=== PATIENT | female | born 1955 | race Caucasian/White ===

== ENCOUNTER → 2019-04-18 | Outpatient (REF) | payer OTHER ==
[~2019-04-18] MED LIST: ACET65TA; ADVA1AER2; ALBUTEROL; BENI20TA11; BONIVA; COUM1TAB18; FLOVENT; FOLI1TAB; HYDR25TA6; NEXI20CA; OXYC10TA97; PERC5TAB8; PULMOCORT; SERO1TAB3; SKELAXIN; SUCR1TAB56; THYR15TA; VITAMIN A&D; ZANTAC
[2019-04-18 18:52] LABS: FERRITIN 99 NG/ML (8-252); IRON (FE) 96 UG/DL (50-170); PERCENT SATURATION 31.8 % (13.2-45.0); TOTAL IRON BINDING CAPACITY 302 UG/DL (250-450); TOTAL PROTEIN 6.2 GM/DL (6.4-8.2)
[2019-04-18 18:57] LABS: FOLATE > 24.0 NG/ML; VITAMIN B12 LEVEL 285 PG/ML
[2019-04-18 19:01] LABS: URINE TOTAL PROTEIN 7.4 MG/DL (0-12)
[2019-04-20 07:29] LABS: UPEP INTERPRETATION NO M-SPIKE NOTED; URINE VOLUME RANDOM ML
[2019-04-24 10:54] LABS: ALBUMIN 3.95 GM/DL (3.29-5.55); ALBUMIN % 63.7 % (55.8-66.1); ALPHA-1-GLOBULINS 0.25 GM/DL (0.17-0.41); ALPHA-2-GLOBULINS 0.61 GM/DL (0.42-0.99)
[2019-04-24 10:55] LABS: ALPHA-2-GLOBULINS % 9.9 % (7.1-11.8); BETA-1-GLOBULINS % 6.4 % (4.7-7.2); BETA-2-GLOBULINS 0.31 GM/DL (0.19-0.55); GAMMA GLOBULINS 0.68 GM/DL (0.65-1.58)
== END ==
LOC: M LAB REF 16:59
PROVIDERS: ATTEND Internal Medicine Nephrology
DX: D64.9 Anemia, unspecified (principal)

== ENCOUNTER 2019-05-22 15:57 | Emergency (ER) | payer OTHER, BC ==
[~2019-05-22] VITALS: Ht 165.1 cm; Wt 75.0 kg
[2019-05-22 18:37] VITALS: BP 131/76
--- NOTE | 2019-05-22 18:39 | REP ---
REASON FOR EXAM: Pain after trauma. COMPARISON: EXAM: 08/23/2009 a postoperative exam. 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 There are no abnormal periprosthetic lucencies. Seen only on the lateral views there is a subtle cortical step-off possibly with a cortical breech. There is marked and significant anterior soft tissue swelling spanning the breadth of the knee. IMPRESSION:Possible tiny posterior distal femoral diaphyseal fracture. The finding is subtle. There is a significant amount of soft-tissue swelling, probably a prepatellar bursal effusion. Electronically Signed by Cecil Ma DO 05/22/2019 07:28 P
--- NOTE | 2019-05-23 15:53 | ED PDOC ---
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
== END 2019-05-22 18:54 | disposition home or self-care (01) ==
LOC: M ED 15:57
DX: S80.02XA Contusion of left knee, initial encounter (principal); R22.42 Localized swelling, mass and lump, left lower limb; W19.XXXA Unspecified fall, initial encounter; Y92.009 Unspecified place in unspecified non-institutional (private) residence as the place of occurrence of the external cause; Y93.9 Activity, unspecified; Y99.8 Other external cause status; I10 Essential (primary) hypertension; M54.2 Cervicalgia; F31.9 Bipolar disorder, unspecified; Z79.899 Other long term (current) drug therapy; Z88.0 Allergy status to penicillin; Z88.8 Allergy status to other drugs, medicaments and biological substances; Z96.652 Presence of left artificial knee joint

== ENCOUNTER → 2019-08-17 | Outpatient (REF) | payer OTHER, BC ==
[2019-08-17 14:31] LABS: ALBUMIN 3.9 GM/DL (3.2-5.2); CALCIUM LEVEL 9.2 MG/DL (8.8-10.2); CREATININE FOR GFR 1.12 MG/DL (0.55-1.30); GLOMERULAR FILTRATION RATE 52.5 (>45); MAGNESIUM LEVEL 1.9 MG/DL (1.8-2.4); PHOSPHORUS LEVEL 4.2 MG/DL (2.5-4.9); POTASSIUM SERUM 3.6 MEQ/L (3.5-5.1)
== END ==
LOC: M LAB REF 13:53
PROVIDERS: ATTEND Internal Medicine Nephrology
DX: N18.3 Chronic kidney disease, stage 3 (moderate) (principal)

== ENCOUNTER → 2020-07-19 | Outpatient (CLI) | payer BC, OTHER | LOC: M LABSMTC 10:48 | PROVIDERS: ATTEND Physical Medicine & Rehabilitation | DX: Z01.812 Encounter for preprocedural laboratory examination (principal); Z20.828 Contact with and (suspected) exposure to other viral communicable diseases ==

== ENCOUNTER → 2021-09-09 | Outpatient (REF) | payer OTHER, BC | LOC: M LAB REF 13:22 | PROVIDERS: ATTEND Nurse Practitioner Family | DX: E87.6 Hypokalemia (principal) ==

== ENCOUNTER → 2025-05-22 | Outpatient (REF) | payer MEDICARE, OTHER ==
[2025-05-22 19:50] LABS: BACTERIA, URINE AUTO NEGATIVE (NEGATIVE); RBC, URINE AUTO 0 /HPF (0-3); SQUAMOUS EPITHELIAL CELL UR AU 0 /HPF (0-6); WBC, URINE AUTO 1 /HPF (0-3)
== END ==
LOC: M LAB REF 17:08
PROVIDERS: ATTEND Nurse Practitioner Family
DX: R31.29 Other microscopic hematuria (principal)